=== PATIENT | male | born 1940 | race Caucasian/White ===

== ENCOUNTER 2018-06-08 13:50 | Emergency (ER) | payer MEDICARE, OTHER ==
[~2018-06-08 13:50] MED LIST: ACCUNEB SO1.25 MG/1 INH; ACETAMINOPHEN325 M1 PO; ADULT LOW DOSE81 MG PO; ADVAIR 250-501 EACH INH; ADVAIR HFA 230M12 GM INH; ALBUTEROL2.5 MG/0.5 INH; ATORVASTATIN CA40 MG PO; AVELOX 400 MG400 MG PO; AVELOX PO; CENTRUM SILVER1 EAC2 PO; CIPRO250 M1 PO; CIPRO500 MG PO; CIPROFLOXACIN500 M3 PO; CO Q-10150 MG PO; COSOPT EYE DROPS5 ML OP; COUMADIN 5 MG TA5 M1 PO; COUMADIN7.5 MG PO; DOXYCYCLINE HY100 M3 PO; DUONEB 2.5-0.5 M3 ML INH; ENOXAPARIN100 MG/11 SUBQ; ENOXAPARIN40 MG/0.1 SUBQ; GLIPIZIDE ER5 MG PO; GLUCOPHAGE500 MG PO; GLUCOTROL10 MG PO; GLUCOTROL5 MG; HYDROCODON-ACE1 EAC7 PO; HYDROCODON-ACE1 EACH PO; JANUVIA50 MG PO; LANTUS SUBQ; LASIX 40 MG TAB40 M2 PO; LOPRESSOR100 M1 PO; LOPRESSOR25 PO; LOPRESSOR50 PO; LOVENOX SQ; MOBIC15 MG PO; NORCO 10-325 T1 EACH PO; NORFLEX100 MG PO; NOVOLOG100 UNIT/1 SUBQ; ONGLYZA5 MG; ONGLYZA5 MG PO; PERCOCET PO; PERINDOPRIL ERBU8 MG PO; PLAVIX 75 MG TA75 MG PO; PRIMIDONE50 MG PO; PROAIR HFA8.5 GM INH; ROXICET 5-3251 EACH PO; TOPROL XL100 MG PO; TOPROL XL50 MG; ULTRAM 50MG TAB50 MG PO; ZETIA10 MG PO; ZOCOR PO
== END 2018-06-08 14:03 ==
LOC: ER 13:50
DX: I46.9 Cardiac arrest, cause unspecified (principal); Z88.0 Allergy status to penicillin; Z88.5 Allergy status to narcotic agent